=== PATIENT | male | born 1995 | race Hispanic/Latino ===

== ENCOUNTER 2020-03-03 18:11 | Emergency (ER) | payer OTHER ==
[2020-03-03] MEDS ORDERED: KETOROLAC TROMETHAMINE 60 MG/2 ML VIAL ONE (18:38)
[2020-03-03] MEDS ORDERED: HYDROCODONE/ACETAMINOPHEN 10/325 MG TAB ONE (18:39)
[2020-03-03] MEDS ORDERED: CYCLOBENZAPRINE HCL 10 MG TABLET ONE (18:39)
== END 2020-03-03 19:18 | disposition home or self-care (01) ==
LOC: EDH 18:11
DX: M54.41 Lumbago with sciatica, right side (principal); Z88.0 Allergy status to penicillin; Z90.49 Acquired absence of other specified parts of digestive tract; Z98.890 Other specified postprocedural states
CPT/HCPCS: 96372; 99283; J1885